=== PATIENT | female | born 1990 ===

== ENCOUNTER → 2022-05-03 | Outpatient (CLI) | payer OTHER ==
[~2022-05-03] MED LIST: BIRTH CONTROL PATCH; CEPH500 PO; CIPR500 PO; Cleocin HCl300 MG PO; NAPR500 PO; PHENA200 PO; PROM25 PO; SULTRIDS PO
[2022-05-03 12:08] LABS: Source, Urine Clean Catch
[2022-05-03 14:23] LABS: U Amphetamine Screen DETECTED; U Barbituate Screen Not Detected; U Benzodiazapine Screen Not Detected; U Buprenorphine Screen Not Detected; U Cannabinoids Screen Not Detected; U Cocaine Screen Not Detected; U Methadone Screen Not Detected; U Methamphetamine Screen DETECTED; U Opiates Screen DETECTED; U Oxycodone Screen Not Detected; U Phencyclidine Screen Not Detected; U Propoxyphene Screen Not Detected
[2022-05-03 14:48] LABS: White Blood Cells, Urine 25-50 /hpf (0-5)
[2022-05-03 14:49] LABS: Bacteria Many /hpf; Calcium Oxalate Crystals Few /hpf; Squamous Epithelial Cells Mod /hpf (Few)
[2022-05-08 10:08] LABS: 6-ACETYLMORPHINE Not Detected (.)
== END | disposition home or self-care (01) ==
LOC: LAB 12:04 → LAB SHORT 12:04
PROVIDERS: Family Medicine
DX: Z34.81 Encounter for supervision of other normal pregnancy, first trimester (principal)
CPT/HCPCS: 81015; 87077; 87086; 87186; G0480

== ENCOUNTER 2022-08-12 03:36 | Inpatient (IN) | payer OTHER ==
[~2022-08-12] VITALS: Ht 167.6 cm; Wt 61.8 kg
[2022-08-12] MEDS ORDERED: PRENATAL TABLE1 EAC2 PO (05:14)
[2022-08-12 05:57] LABS: BASOPHILS ABSOLUTE AUTO 0.02 K/mm3 (0.00-0.23); BASOPHILS PERCENT AUTO 0 % (0-2); EOSINOPHILS ABSOLUTE AUTO 0.03 K/mm3 (0.00-0.68); EOSINOPHILS PERCENT AUTO 0 % (0-6); Hematocrit 36.5 % (33.0-51.0); Hemoglobin 11.4 g/dL (11.5-16.0); IMMATURE GRAN ABSOLUTE AUTO 0.07 K/mm3 (0.00-0.10); IMMATURE GRAN PERCENT AUTO 1 % (0-1); LYMPHOCYTES ABSOLUTE AUTO 1.37 K/mm3 (0.84-5.20); LYMPHOCYTES PERCENT AUTO 12 % (21-46); MONOCYTES ABSOLUTE AUTO 0.61 K/mm3 (0.16-1.47); MONOCYTES PERCENT AUTO 5 % (4-13); Mean Corpuscular HGB 24.4 pg (26.0-34.0); Mean Corpuscular HGB Conc 31.2 g/dL (31.5-36.5); Mean Corpuscular Volume 78 fL (80-100); Mean Platelet Volume 10.6 fL (9.1-12.4); NEUTROPHILS PERCENT AUTO 82 % (41-73); Platelet Count 266 K/mm3 (150-400); RDW Coefficient Variation 14.3 % (11.7-14.2); RDW Standard Deviation 39.9 fL (35.1-46.3); Red Blood Cell Count 4.67 M/mm3 (3.80-5.20)
[2022-08-12 14:34] LABS: U Amphetamine Screen DETECTED; U Barbituate Screen Not Detected; U Benzodiazapine Screen Not Detected; U Buprenorphine Screen Not Detected; U Cannabinoids Screen Not Detected; U Cocaine Screen Not Detected; U Methadone Screen Not Detected; U Methamphetamine Screen DETECTED; U Opiates Screen Not Detected; U Oxycodone Screen Not Detected; U Phencyclidine Screen Not Detected; U Propoxyphene Screen Not Detected
--- NOTE | 2022-08-12 23:56 | NUR ---
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 EDUCATED ABOUT SAFE SLEEPING PRACTICES AND RISKS OF CO-SLEEPING. MOTHER VERBLAIZES UNDERSTANDING AND IS AGREEABLE.
[2022-08-13 09:10] LABS: HIV AB/P24 AG SCREEN Non Reactive (Non Reactive)
--- NOTE | 2022-08-13 16:39 | NUR ---
08-13-22 [id number] spoke with [facility] hotline Fatmata Cadet she will make syure the case is sent to local [facility] within 72 hours.
[2022-08-14 02:10] LABS: CHLAMYDIA TRACHOMATIS, NAA Negative (Negative)
[2022-08-14 07:11] LABS: HBSAG SCREEN Negative (Negative)
--- NOTE | 2022-08-16 11:52 | NUR ---
[facility]. PT DID NOT COME TO [facility], DID NOT CALL TO RESCHEDULE OR ANSWER PHONE CALL.
[2022-08-18 09:10] LABS: HCV AB >11.0 (0.0-0.9); HCV LOG10 6.772 (.); HEPATITIS C QUANTITATION 5920000 IU/mL (.)
== END 2022-08-13 16:00 | disposition home or self-care (01) | DRG 806 ==
LOC: OBS 03:36 → BC 03:38 → OBS 04:13 → BC 04:14
PROVIDERS: Advanced Practice Midwife; ADMIT Family Medicine
PROC: 10E0XZZ Delivery of Products of Conception, External Approach (ICD-10-PCS; principal; 2022-08-12)
PROC: 0KQM0ZZ Repair Perineum Muscle, Open Approach (ICD-10-PCS; 2022-08-12)
DX: O48.0 Post-term pregnancy (principal); O98.32 Other infections with a predominantly sexual mode of transmission complicating childbirth; Z37.0 Single live birth; O99.324 Drug use complicating childbirth; F15.10 Other stimulant abuse, uncomplicated; A63.0 Anogenital (venereal) warts; F11.90 Opioid use, unspecified, uncomplicated; O70.1 Second degree perineal laceration during delivery; O71.82 Other specified trauma to perineum and vulva; O69.1XX0 Labor and delivery complicated by cord around neck, with compression, not applicable or unspecified; O99.334 Smoking (tobacco) complicating childbirth; F17.210 Nicotine dependence, cigarettes, uncomplicated; B96.20 Unspecified Escherichia coli [E. coli] as the cause of diseases classified elsewhere; B96.6 Bacteroides fragilis [B. fragilis] as the cause of diseases classified elsewhere; B96.89 Other specified bacterial agents as the cause of diseases classified elsewhere; O09.33 Supervision of pregnancy with insufficient antenatal care, third trimester; Z98.890 Other specified postprocedural states; Z3A.42 42 weeks gestation of pregnancy; Z88.0 Allergy status to penicillin; Z79.899 Other long term (current) drug therapy
CPT/HCPCS: 36415; 85025; 86317; 86592; 86703; 86762; 86803; 86850; 86900; 86901; 87070; 87075; 87076; 87077; 87081; 87150; 87185; 87186; 87205; 87340; 87389; 87491; 87591; A9270; J2590; J7120